=== PATIENT | female | born 1955 | race Caucasian/White ===

== ENCOUNTER 2019-10-14 07:49 | Inpatient (IN) ==
--- NOTE | 2019-09-11 12:37 | PAT Medication Instructions ---
Medication Instructions Date of Service September 11, 2019 Home Medications Medication Instructions Recorded oxycodone-acetaminophen [Percocet] 1 - 2 tab PO Q6H PRN #30 tab 07/22/19 atorvastatin [Lipitor] 20 mg PO QAM montelukast 10 mg PO olmesartan [Benicar] 40 mg PO QAM oxycodone-acetaminophen [Percocet] 1 - 2 tab PO Q6H PRN albuterol sulfate [Proventil HFA] 2 puff INHALATION Q6H PRN inulin [Fiber Gummies] 1 g PO QAM multivitamin 1 cap PO QAM turmeric 400 mg PO QAM STOP taking 2 weeks before surgery (or as soon as possible if surgery is within 2 weeks) turmeric 400 mg PO QAM DO NOT take the morning of surgery montelukast 10 mg PO olmesartan [Benicar] 40 mg PO QAM inulin [Fiber Gummies] 1 g PO QAM multivitamin 1 cap PO QAM Take morning of surgery With a small sip of water, OTHERWISE NOTHING TO EAT OR DRINK AFTER MIDNIGHT: atorvastatin [Lipitor] 20 mg PO QAM oxycodone-acetaminophen [Percocet] 1 - 2 tab PO Q6H PRN (okay to take up to 4 hours prior to surgery if needed) albuterol sulfate [Proventil HFA] 2 puff INHALATION Q6H PRN (use if needed; please bring with you to hospital day of surgery if possible) Other Notes If you have any questions please call us at [phone] or [phone] or [phone] or [phone]
--- NOTE | 2019-09-11 12:39 | Anesthesiology Consultation ---
Date of Service September 11, 2019 Assessment & Plan (1) Encounter for pre-operative examination: - Awaiting review preop testing (labs, EKG, CXR). - Awaiting surgeon-ordered PCP preop evaluation scheduled 09/16. - S/P left wrist application of external fixator: 07/22/19: LMA#4 at [facility] Chart Review Chart Review: Patient seen in Pre Admission Testing Teaching & Discussion Pre-Anesthesia Teaching/Discussion Notes: Instructed NPO after midnight before surgery,except medications with 15 cc of water. Medication instructions provi ded according to the PAT guidelines. History Surgery Operation Date: 10/14/19 10:05 Proposed Procedures p Right Total Knee Arthroplasty - Damaso Alaniz DO Height/Weight Height: 5 ft 2 in Weight: 95.8 kg Allergies Allergy/AdvReac Type Severity Reaction Status Date / Time No Known Allergies Allergy Unverified 09/10/19 11:33 Medications Home Medications Medication Instructions Recorded Confirmed Last Taken atorvastatin [Lipitor] 20 mg PO QAM 07/21/19 09/10/19 07/21/19 07:00 montelukast 10 mg PO QAM 07/21/19 09/10/19 07/21/19 07:00 olmesartan [Benicar] 40 mg PO QAM 07/21/19 09/10/19 07/21/19 07:00 oxycodone-acetaminophen [Percocet] 1 - 2 tab PO Q6H PRN #30 tab 07/22/19 09/10/19 Unknown albuterol sulfate [Proventil HFA] 2 puff INHALATION Q6H PRN 09/10/19 09/10/19 Unknown inulin [Fiber Gummies] 1 g PO QAM 09/10/19 09/10/19 Unknown multivitamin 1 cap PO QAM 09/10/19 09/10/19 Unknown turmeric 400 mg PO QAM 09/10/19 09/10/19 Unknown Past Medical History Medical History Obesity Osteoarthritis Asthma stable Hypercholesteremia Hypertension Exercise / Class Metabolic Activity III < 4 Walking/Shop/Light housework Past Surgical History Surgical History History of open reduction and internal fixation (ORIF) procedure left wrist Hx of arthroscopic knee surgery left knee H/O section [place] teeth extracted Past Anesthesia History No Hx of Anesthesia Complications and No Family Hx of Anesthesia Complications History of PONV No Hx of PONV and No Hx of Motion Sickness Social History Smoking Status: Never smoker Do You Dip or Chew Tobacco: No Hx Alcohol Use: Yes alcohol intake frequency: a few times a month Hx Substance Use: No substance use type: does not use Review of Systems Patient denies chest pain, shortness of breath, reflux, cough, wheezing, palpitations. Physical Exam Vital Signs VITALS BP 135/78 P 79 TEMP 97.6 SP02 96%RA RESP 18 PHYSICAL Full neck and c-spine range of motion. Full TMJ range of motion. TMD 4 finger breaths Mallampati Score 2 Dentition: intact, cap/crown on molar Lungs: clear throughout to auscultation Cardiac: regular rate and rhythm, no murmurs noted Spine: normal Carotid arteries: negative bruit Extremities: no edema Testing Electrocardiogram Date: 07/21/19 NSR at 73bpm. Chest X-Ray Date: 07/21/19 Mild basilar atelectasis. No evidence of pneumothorax. No evidence of failure. No evidence of lobar consolidation.
[2019-09-11 14:28] LABS: Basophils # (auto) 0.03 K/uL (0-0.2); Basophils % (auto) 0.4 %; Eosinophils # (auto) 0.31 K/uL (0-0.5); Eosinophils % (auto) 4.5 %; Hematocrit (blood only) 37.5 % (37-47); Hemoglobin 12.6 g/dL (12.0-16.0); Immature Granulocytes # (auto) 0.01 K/uL (0.00-0.02); Immature Granulocytes % (auto) 0.1 %; Lymphocytes # (auto) 2.19 K/uL (1.2-3.4); Lymphocytes % (auto) 31.9 %; Mean Corpuscular Hemoglobin 32.1 pg (25-34); Mean Corpuscular Hgb Conc 33.6 g/dL (32-36); Mean Corpuscular Volume 95.4 fL (80-100); Mean Platelet Volume 9.8 fL (7.4-10.4); Monocytes # (auto) 0.36 K/uL (0.11-0.59); Monocytes % (auto) 5.2 %; Neutrophils # (auto) 3.97 K/uL (1.4-6.5); Neutrophils % (auto) 57.9 %; Platelet Count 263 K/uL (130-400); RDW Coefficient of Variation 12.3 % (11.5-14.5); RDW Standard Deviation 42.8 fL (36.4-46.3); Red Blood Count 3.93 M/uL (4.2-5.4); White Blood Count 6.87 K/uL (4.8-10.8)
[2019-09-11 14:35] LABS: Albumin Level 3.4 gm/dl (3.4-5.0); BUN Creatinine Ratio 21.8 (10-20); Calcium 9.2 mg/dl (8.5-10.1); Creatinine Clr Calc Pharmacy 79.7 ml/min; Est GFR (African American) 93.8; Est GFR (Non-African American) 80.9; Potassium 4.3 mmol/L (3.5-5.1)
[2019-09-11 14:36] LABS: Estimated Average Glucose 123 mg/dl; Hemoglobin A1C 5.9 % (4.5-5.6)
[2019-09-11 14:41] LABS: Partial Thromboplastin Time 28.2 Seconds (21.0-31.0); Prothrombin Time 10.3 Seconds (9.0-12.0)
[2019-09-11 14:48] LABS: Appearance Urine Clear (Clear); Bilirubin Urine Negative (Negative); Blood Urine Negative (Negative); Color Urine Yellow; Glucose Urine UA Negative (Negative); Ketones Urine Negative (Negative); Leukocyte Esterase Urine Negative (Negative); Nitrite Urine Negative (Negative); Protein Urine Negative (Negative); Specific Gravity Urine 1.014 (1.000-1.030); Urobilinogen Urine Negative (Negative); pH Urine 5.5 (4.5-7.5)
--- NOTE | 2019-09-19 14:31 | History & Physical Report ---
Date of Service September 19, 2019 date of surgery: 10-14-19 Assessment & Plan (1) Osteoarthritis of right knee: Further care discussed with patient and at this point in time has failed conservative measures and would like to proceed with a Right total knee replacement. Plan on discharge will be home with home health physical therapy. DVT prophalaxis with TEDs, SCDs and will also place on aspirin 81 mg p.o. b.i.d. for a month postop. Patient will have follow up appointment in our office two weeks post op for staple/suture removal and re-evaluation. Patient otherwise has no other questions or concerns. History of Present Illness Chief Complaint: Right knee pain Primary Care Provider: Rochelle Montgomery DO Norma is a 64 year old female who complains of Right knee pain, presents for pre-op evaluation prior to a Right total knee replacement by dr Alaniz at [facility]. She complains of pain, crepitus, decreased range of motion, instability and stiffness in the Right knee. She states that the symptoms have been chronic and non-traumatic. She states that the symptoms occur constantly with intermittent worsening. Currently the patient states that the symptoms are moderate-severe. The pain is described as aching, sharp and throbbing. The symptoms occur continuously. The symptoms are aggravated by ascending stairs, daily activities, first steps while awake walking. Prior NSAIDs include Aleve, Norma has been treated with previous Durolane (Visco) injections in the past without much relief. her radius fracture has healed well and is ready to proceed with Right TKA. Allergies Allergy/AdvReac Type Severity Reaction Status Date / Time No Known Allergies Allergy Unverified 09/10/19 11:33 Home Medications Home Medications Medication Instructions Recorded Confirmed Type atorvastatin [Lipitor] 20 mg PO QAM 07/21/19 09/10/19 History montelukast 10 mg PO QAM 07/21/19 09/10/19 History olmesartan [Benicar] 40 mg PO QAM 07/21/19 09/10/19 History oxycodone-acetaminophen [Percocet] 1 - 2 tab PO Q6H PRN #30 tab 07/22/19 09/10/19 Rx albuterol sulfate [Proventil HFA] 2 puff INHALATION Q6H PRN 09/10/19 09/10/19 History inulin [Fiber Gummies] 1 g PO QAM 09/10/19 09/10/19 History multivitamin 1 cap PO QAM 09/10/19 09/10/19 History turmeric 400 mg PO QAM 09/10/19 09/10/19 History Past Med/Surg History Medical History Asthma stable Hypercholesteremia Hypertension Obesity Osteoarthritis Surgical History H/O section History of open reduction and internal fixation (ORIF) procedure left wrist Hx of arthroscopic knee surgery left knee [place] teeth extracted Family History (Updated 09/19/19 @ 15:34 by Rishabh Ortega PA-C) Unknown No family history of adverse response to anesthesia Social History Preferred Language: Romansh Communication Ability: Effective [employer] Required: No Beliefs That Will Affect Care: None Current Living Situation: Spouse Other Information That Helps Us Care for You: No Feels Safe at Home: Yes Safety Concerns: Feels Safe At This Time Smoking Status: Never smoker Do You Dip or Chew Tobacco: No ; Second Hand Exposure: No ; Tobacco Cessation Education Requested by Patient: No Hx Alcohol Use: Yes Hx Substance Use: No Review of Systems Review of Systems: All systems reviewed & are unremarkable except as noted in HPI & below Constitutional: no fever, no chills and no sweats Respiratory: no cough and no dyspnea Cardiovascular: no chest pain, no dyspnea and no orthopnea Gastrointestinal: no abdominal pain, no nausea and no vomiting Musculoskeletal: as per Subjective / HPI Physical Exam Physical Exam: Ht: 5ft 2in Wt: 95.8kg BP: 124/78 Pulse: 85 Constitutional: WD/WN, vitals as above no acute distress Respiratory: normal respiratory effort, lungs clear to auscultation no respiratory distress, no labored breathing and does not use accessory muscles Cardiovascular: RRR, no murmur, no edema Gastrointestinal (Abdomen): normal bowel sounds, soft, nontender, no hepatosplenomegaly Musculoskeletal: Knee: + knee abnormal to inspection (right knee- ), + effusion (+1 effusion), + surgical incision (well healed portals), + limited ROM of knee (ROM 0/3/115), + knee ROM with crepitation, + joint line tenderness (medial joint line) and + Delmi's sign positive; no deformity, no skin erythema, no ecchymosis, no valgus laxity, no varus laxity, anterior drawer test negative, Konrad's sign negative and pivot shift test negative Results & Data Laboratory Results Laboratory Results WBC 6.87 K/uL (4.8-10.8) 09/11/19 12:54 RBC 3.93 M/uL (4.2-5.4) L 09/11/19 12:54 Hgb 12.6 g/dL (12.0-16.0) 09/11/19 12:54 Hct 37.5 % (37-47) 09/11/19 12:54 MCV 95.4 fL (80-100) 09/11/19 12:54 MCH 32.1 pg (25-34) 09/11/19 12:54 MCHC 33.6 g/dL (32-36) 09/11/19 12:54 RDW Std Deviation 42.8 fL (36.4-46.3) 09/11/19 12:54 RDW Coeff of Una 12.3 % (11.5-14.5) 09/11/19 12:54 Plt Count 263 K/uL (130-400) 09/11/19 12:54 MPV 9.8 fL (7.4-10.4) 09/11/19 12:54 Immature Gran % (Auto) 0.1 % 09/11/19 12:54 Neut % (Auto) 57.9 % 09/11/19 12:54 Lymph % (Auto) 31.9 % 09/11/19 12:54 [place] % (Auto) 5.2 % 09/11/19 12:54 Eos % (Auto) 4.5 % 09/11/19 12:54 Baso % (Auto) 0.4 % 09/11/19 12:54 Immature Gran # (Auto) 0.01 K/uL (0.00-0.02) 09/11/19 12:54 Neut # (Auto) 3.97 K/uL (1.4-6.5) 09/11/19 12:54 Lymph # (Auto) 2.19 K/uL (1.2-3.4) 09/11/19 12:54 [place] # (Auto) 0.36 K/uL (0.11-0.59) 09/11/19 12:54 Eos # (Auto) 0.31 K/uL (0-0.5) 09/11/19 12:54 Baso # (Auto) 0.03 K/uL (0-0.2) 09/11/19 12:54 PT 10.3 Seconds (9.0-12.0) 09/11/19 12:54 INR 1.0 (0.9-1.1) 09/11/19 12:54 APTT 28.2 Seconds (21.0-31.0) 09/11/19 12:54 PTT Ratio 1.0 09/11/19 12:54 Sodium 141 mmol/L (136-145) 09/11/19 12:54 Potassium 4.3 mmol/L (3.5-5.1) 09/11/19 12:54 Chloride 107 mmol/L (98-107) 09/11/19 12:54 Carbon Dioxide 30 mmol/L (21-32) 09/11/19 12:54 Anion Gap 4.0 (3-11) 09/11/19 12:54 BUN 17 mg/dl (7-18) 09/11/19 12:54 Creatinine 0.78 mg/dl (0.6-1.2) 09/11/19 12:54 Est Cr Clr Drug Dosing 79.7 ml/min 09/11/19 12:54 Est GFR ( Amer) 93.8 09/11/19 12:54 Est GFR (Non-Af Amer) 80.9 09/11/19 12:54 BUN/Creatinine Ratio 21.8 (10-20) H 09/11/19 12:54 Glucose 107 mg/dl (70-99) H 09/11/19 12:54 Estimat Average Glucose 123 mg/dl 09/11/19 12:54 Hemoglobin A1c 5.9 % (4.5-5.6) H 09/11/19 12:54 Calcium 9.2 mg/dl (8.5-10.1) 09/11/19 12:54 Albumin 3.4 gm/dl (3.4-5.0) 09/11/19 12:54 Urine Color Yellow 09/11/19 Unknown Urine Appearance Clear (Clear) 09/11/19 Unknown Urine pH 5.5 (4.5-7.5) 09/11/19 Unknown Ur Specific [place] 1.014 (1.000-1.030) 09/11/19 Unknown Urine Protein Negative (Negative) 09/11/19 Unknown Urine Glucose (UA) Negative (Negative) 09/11/19 Unknown Urine Ketones Negative (Negative) 09/11/19 Unknown Urine Blood Negative (Negative) 09/11/19 Unknown Urine Nitrite Negative (Negative) 09/11/19 Unknown Urine Bilirubin Negative (Negative) 09/11/19 Unknown Urine Urobilinogen Negative (Negative) 09/11/19 Unknown Ur Leukocyte Esterase Negative (Negative) 09/11/19 Unknown Blood Type O Positive 09/11/19 12:54 Antibody Screen NEGATIVE 09/11/19 12:54 Diagnostic Findings right knee xray showing complete loss joint space medial compartment with overall varus alignment, there is also narrowing of the lateral compartment and patellofemoral joint. there is osteophyte formation, subchondral sclerosis noted, no loose bodies, no acute bony pathology. overall impression tricompartmental degenerative changes to the right knee.
[~2019-10-14 07:49] MED LIST: ACETAMINOPHEN 500 MG TAB PO SCH; BUPIVACAINE 0.5 % 5 MG/1 ML PF 10ML VIAL ONE; CEFAZOLIN 2000MG 2,000 MG/15 ML SYR IV SCH; CeleBREX 200 MG CAP PO SCH; FAMOTIDINE 20 MG TAB PO SCH; GABAPENTIN 600 MG DOSE PO SCH; LR 500ML BOLUS, THEN 15ML/HR IV SCH; METOCLOPRAMIDE HCL 10 MG TABLET PO SCH; ROPIVACAINE 0.5% HCL/PF 150 MG, BUPIVACAINE 0.5% MPF 30 ML, EPINEPHrine 30MG/30ML (OR U... INFIL SCH; TRANEXAMIC ACID 1,000 MG **IV Intra-op IV SCH; TRANEXAMIC ACID 1,000 MG **IV Pre-op IV SCH; dexAMETHasone 4 MG TAB PO SCH
[2019-10-14] MEDS ORDERED: LIDOCAINE HCL 2% 2 ML VIAL/AMP(20MG/ML) INFIL ONE (07:51)
[2019-10-14] MEDS ORDERED: PROPOFOL IV EMULSION 10 MG/ML 20 ML VIAL IV ONE ×2 (07:51→10:49)
[2019-10-14] MEDS ORDERED: MIDAZOLAM HCL 1 MG/ML 2ML VIAL ONE (07:51)
[2019-10-14] MEDS ORDERED: fentaNYL citrate 100 MCG/2 ML VIAL ONE (07:51)
--- NOTE | 2019-10-14 08:47 | History & Physical Bridge Note ---
Date of Service October 14, 2019 History & Physical Bridge Note I have examined the patient, reviewed the History & Physical and in the interval since the performance of the History & Physical I have noted the following changes of clinical significance: no changes noted
[2019-10-14] MEDS ORDERED: BACITRACIN INJ 50,000 UNIT VIAL ONE (09:20)
[2019-10-14] MEDS ORDERED: ORTHO JOINT ANESTHETIC ONE (09:20)
[2019-10-14] MEDS ORDERED: ATROPINE SULFATE 0.1 MG/ML 10ML SYR IV PRN (09:29)
[2019-10-14] MEDS ORDERED: ONDANSETRON INJ 2 MG/ML 2 ML VIAL IV PRN ×2 (09:29→12:48)
[2019-10-14] MEDS ORDERED: fentaNYL citrate 100 MCG/2 ML VIAL IV PRN (09:29)
[2019-10-14] MEDS ORDERED: ePHEDrine sulfate 50 MG/ML AMP IV PRN (09:29)
--- NOTE | 2019-10-14 10:56 | Operative Report ---
Post Operative Report Pre & Post Diagnosis Operation Date: 10/14/19 09:55 Pre-Op Diagnosis: Unilateral Primary Osteoarthritis, Right Knee Post-Op Diagnosis: Unilateral Primary Osteoarthritis, Right Knee I identified the patient and participated in the time-out.: Yes Procedure Operation Date: 10/14/19 09:55 Actual Procedures p Right Total Knee Arthroplasty(Right) utilizing [employer] journey 2 patient matched total knee arthroplasties 5 femur 4 tibia 13 polyethylene 29 oval patella- Damaso Alaniz DO Surgeon Damaso Alaniz DO Director Of Fundraising OSM[place] Estimated Blood Loss 5 Findings Consistent with Post-Op Diagnosis Patient presents a 64-year-old white female with complaints of severe end-stage DJD about her knee she is no evidence of varus alignment subchondral sclerosis marginal osteophytes subchondral cystic changes [id number] with a moderate to large effusion no response to conservative management Specimens Bone and cartilage Drains Medium bore Hemovac Complications none Disposition Accompanied Patient To Recovery: No Disposition: Recovery Room Indications Patient presents as a 64-year-old white female complains of ongoing pain about her right knee no response to conservative management with physical therapy anti-inflammatories relative rest activity modification corticosteroid injections Visco supplementation bracing the above intraoperative findings at the time of surgery. Description of Procedure After proper identification of the patientAfter proper prepping and draping of the Right lower extremity anterior midline incision was made over the region of the extensor extensor mechanism after meticulous hemostasis was obtained and maintained in subcutaneous tissues a medial parapatellar incision was made The patella was subluxed lateralward the medial lateral gutter were cleaned from any hypertrophic synovitis and scar tissue of the distal femoral block was placed and the distal femoral osteotomy cut was made subsequently the chamfers anterior and posterior osteotomy cuts were made utilizing the 4-in-1 block the tibia was subsequently subluxed anteriorward medial and ateral meniscal remnants were excised in their entirety remnants of the anterior and posterior cruciate ligaments were excised in their entirety excellent exposure of the proximal ti percy was obtained the tibial osteotomy guide was placed on the proximal tibial osteotomy cut was made once again the knee was irrigated with copious amounts of sterile saline solution the patella was subsequently everted lateralward thickened scar tissue around the patella was removed the patella was subsequently cut utilizing a freehand technique and was drilled prepared for final preparation and placement of patella socially flexion-extension gaps were checked and the equal and symmetric trials were placed to the appropriate femoral and tibial trials with poly-spacer being placed for equal flexion and extension gaps and full range of motion including extension to 0 and flexion to 140 the trial components after having been taken to recovery range of motion was subsequently removed meticulous hemostasis was obtained and maintained subsequently a knee block injection of joint cocktail including ropivacaine 0.5% 150 mg. Bupivacaine 0.5% epinephrine 1-200,030 mL's toradol 30 mg dexamethasone 4 mg ketamine 10 mg clonidine 100 micrograms normal saline solution 30 mg was infiltrated into the soft tissues of the posterior knee medial lateral gutters and periosteal synovium special attention was paid to protect neurovascular structures at all times subsequently trial components having been removed the knee was irrigated with sterile saline solution. debris was removed the proximal tibia was subsequently prepared and was made ready for the placement of the tibial component tibial component was also cemented and tamped into position the femoral component was subsequently placed and cemented in the position the patellar component was subsequently cemented in position because hemostasis once again obtained and maintained wound having been thoroughly irrigated with debridement and debridement lavage was performed as well as a medial parapatellar incision closed with #1 Vicryl in interrupted fashion subcutaneous was closed with #2 Vicryl skin was closed with skin clips. PA-C was necessary for prepping and drapping as well as wound closure of deep fascia Sub cutaneous tissue and skin and was necessary for the case. A sterile compressive dressing was placed patient was taken to recovery in stable condition of report dictated by Corbin I attest to the content of the Intraoperative Record and any orders documented therein. Any exceptions are noted below. I attest to the content of the Intraoperative Record and any orders documented therein. Any exceptions are noted below.
--- NOTE | 2019-10-14 12:18 | Anesthesiology Progress Note ---
Date of Service October 14, 2019 Anesthesia Post Procedure Vital Signs Vital Signs: Temp Pulse Pulse Resp BP BP Pulse Ox 10/14/19 12:15 68 16 120/77 99 10/14/19 12:05 98.2 F 76 16 120/70 97 10/14/19 11:55 75 16 104/65 100 10/14/19 11:45 79 16 113/58 L 100 10/14/19 11:37 98.6 F 88 16 103/55 L 97 10/14/19 08:21 98.1 F 75 18 144/81 H 98 Pain Intensity Right Knee: Pain Intensity: 3 Transfer of Care Handoff Completed per policy Notes Mental Status: alert / awake / arousable and participated in evaluation Patient Amnestic to Procedure: Yes Nausea / Vomiting: adequately controlled Pain: adequately controlled Airway Patency, RR, SpO2: stable & adequate BP & HR: stable & adequate Hydration State: stable & adequate Neuraxial Anesthesia: was administered and sensory block is resolving Anesthetic Complications: no major complications apparent and Pt Satisfied with anesthetic care
--- NOTE | 2019-10-14 12:22 | XRay Report ---
RIGHT KNEE 2 VIEWS History: Right total knee arthroplasty. Degenerative arthritis. Postop. FINDINGS: The patient is status post a right total knee arthroplasty. The hardware is intact. No frac ture or dislocation. Surgical drains are in place. IMPRESSION: Right total knee arthroplasty. No evidence for hardware complication. Electronically signed by: Doyle Barros M.D. 10/14/2019 12:21 PM
[2019-10-14] MEDS ORDERED: ALBUTEROL HFA 8 GM INHALER INH PRN (12:48)
[2019-10-14] MEDS ORDERED: HYDROmorphone INJ 1 MG/ML SYRINGE IV PRN (12:48)
[2019-10-14] MEDS ORDERED: bisacodyL 10 MG SUPP PR PRN (12:48)
[2019-10-14] MEDS ORDERED: METOCLOPRAMIDE HCL INJ 5 MG/ML 2 ML VIAL IV PRN (12:48)
[2019-10-14] MEDS ORDERED: MAGNESIUM HYDROXIDE SUSP 30 ML UDC PO PRN (12:48)
[2019-10-14] MEDS ORDERED: OXYCODONE HCL IR 5 MG TAB (IMMEDIATE RELEASE) PO PRN (12:48)
[2019-10-14] MEDS ORDERED: NALOXONE HCL 0.4 MG/1 ML VIAL/CARP IV PRN (12:48)
[2019-10-14] MEDS ORDERED: SODIUM CHLORIDE 0.9% 1000ML 1,000 ML IV SCH (12:48)
[2019-10-14] MEDS: KETOROLAC 30 MG/ML VIAL IV SCH ×2 (14:04→20:47)
[2019-10-14] MEDS: ACETAMINOPHEN 500 MG TAB PO SCH ×2 (14:24→21:03)
[2019-10-14] MEDS: CEFAZOLIN 2000MG 2,000 MG/15 ML SYR IV SCH (17:35)
[2019-10-14] MEDS: DOCUSATE SODIUM 100 MG CAP PO SCH (20:47)
[2019-10-14] MEDS: ASPIRIN 81 MG ECTAB PO SCH (20:47)
[2019-10-14] MEDS ORDERED: SENNA 8.6 MG TAB PO SCH (21:00)
[2019-10-15] MEDS: KETOROLAC 30 MG/ML VIAL IV SCH ×2 (02:23→08:52)
[2019-10-15] MEDS: CEFAZOLIN 2000MG 2,000 MG/15 ML SYR IV SCH (02:23)
[2019-10-15 05:25] LABS: Hematocrit (blood only) 29.7 % (37-47); Hemoglobin 10.3 g/dL (12.0-16.0); Mean Corpuscular Hemoglobin 32.1 pg (25-34); Mean Corpuscular Hgb Conc 34.7 g/dL (32-36); Mean Corpuscular Volume 92.5 fL (80-100); Mean Platelet Volume 9.8 fL (7.4-10.4); Platelet Count 229 K/uL (130-400); RDW Coefficient of Variation 12.6 % (11.5-14.5); Red Blood Count 3.21 M/uL (4.2-5.4); White Blood Count 12.13 K/uL (4.8-10.8)
[2019-10-15] MEDS: ACETAMINOPHEN 500 MG TAB PO SCH ×2 (05:29→13:18)
[2019-10-15 05:46] LABS: BUN Creatinine Ratio 20.9 (10-20); Calcium 8.1 mg/dl (8.5-10.1); Creatinine Clr Calc Pharmacy 72.3 ml/min; Est GFR (African American) 84.5; Est GFR (Non-African American) 72.9; Potassium 4.1 mmol/L (3.5-5.1)
--- NOTE | 2019-10-15 07:27 | Orthopedic Progress Note ---
Date of Service October 15, 2019 Assessment & Plan (1) History of total right knee replacement: POD #1 s/p Right TKA pt/ot dvt proph with CAMILA/SCD/ASA plan for d/c home with HHPT after PT today. will d/c hemovac if less than 100, if not will leave in until tomorrow and have home nursing d/c tomorrow. Subjective POD #1 s/p Right TKA Review of Systems Constitutional: no fever, no chills and no sweats Respiratory: no cough and no dyspnea Cardiovascular: no chest pain and no dyspnea Gastrointestinal: no abdominal pain, no nausea and no vomiting Physical Exam Physical Exam: Vital Signs Temp 36.7 C 10/15/19 03:20 Pulse 67 10/15/19 03:20 Resp 16 10/15/19 03:20 BP 94/55 L 10/15/19 03:20 Pulse Ox 97 10/15/19 03:20 Intake & Output 10/14/19 10/15/19 10/15/19 18:59 06:59 18:59 Intake Total 1720.0 / 2700.0 980 / 2700.0 Output Total 962 / 2412 1450 / 2412 Balance 758.0 / 288.0 -470 / 288.0 Weight 93.848 kg Intake: IV 900.0 / 1580.0 680 / 1580.0 Lr 1,000 ml @ 15 mls/hr IV . 700.0 / 700.0 Q24H [facility] Rx#:[id number] Nss 1000ML 1,0 00 ml @ 100 mls/ 680 / 680 hr IV .Q10H [facility] Rx#:[id number] TRANEXAMIC ACI D / 0.7% NACL 1, 200 / 200 000 mg In 100 ml @ 600 mls/hr IV 0630 [facility] Rx #:[id number] IV Perioperative 700 / 700 Oral 120 / 420 300 / 420 Output: Urine 800 / 2000 1200 / 2000 Estimated Blood Loss 5 / 5 Drain Output 157 / 407 250 / 407 Right Knee Hem ovac 157 / 407 250 / 407 Constitutional: WD/WN, vitals as above no acute distress Musculoskeletal: Right Leg: NVDI, calf SNT, negative damari sign. DP palpable, able to wiggle toes/ankle movement without difficulty. dressing clean dry and intact. Results & Data Vital Signs (Past 12 Hours) Vital Signs Temp Pulse Resp BP Pulse Ox 10/15/19 03:20 36.7 C 67 16 94/55 L 97 10/14/19 22:49 36.5 C 80 16 127/80 97 Laboratory Results Laboratory Results WBC 12.13 K/uL (4.8-10.8) H 10/15/19 05:05 RBC 3.21 M/uL (4.2-5.4) L 10/15/19 05:05 Hgb 10.3 g/dL (12.0-16.0) L 10/15/19 05:05 Hct 29.7 % (37-47) L 10/15/19 05:05 MCV 92.5 fL (80-100) 10/15/19 05:05 MCH 32.1 pg (25-34) 10/15/19 05:05 MCHC 34.7 g/dL (32-36) 10/15/19 05:05 RDW Std Deviation 43.0 fL (36.4-46.3) 10/15/19 05:05 RDW Coeff of Una 12.6 % (11.5-14.5) 10/15/19 05:05 Plt Count 229 K/uL (130-400) 10/15/19 05:05 MPV 9.8 fL (7.4-10.4) 10/15/19 05:05 Immature Gran % (Auto) 0.1 % 09/11/19 12:54 Neut % (Auto) 57.9 % 09/11/19 12:54 Lymph % (Auto) 31.9 % 09/11/19 12:54 [place] % (Auto) 5.2 % 09/11/19 12:54 Eos % (Auto) 4.5 % 09/11/19 12:54 Baso % (Auto) 0.4 % 09/11/19 12:54 Immature Gran # (Auto) 0.01 K/uL (0.00-0.02) 09/11/19 12:54 Neut # (Auto) 3.97 K/uL (1.4-6.5) 09/11/19 12:54 Lymph # (Auto) 2.19 K/uL (1.2-3.4) 09/11/19 12:54 [place] # (Auto) 0.36 K/uL (0.11-0.59) 09/11/19 12:54 Eos # (Auto) 0.31 K/uL (0-0.5) 09/11/19 12:54 Baso # (Auto) 0.03 K/uL (0-0.2) 09/11/19 12:54 PT 10.3 Seconds (9.0-12.0) 09/11/19 12:54 INR 1.0 (0.9-1.1) 09/11/19 12:54 APTT 28.2 Seconds (21.0-31.0) 09/11/19 12:54 PTT Ratio 1.0 09/11/19 12:54 Sodium 140 mmol/L (136-145) 10/15/19 05:05 Potassium 4.1 mmol/L (3.5-5.1) 10/15/19 05:05 Chloride 109 mmol/L (98-107) H 10/15/19 05:05 Carbon Dioxide 26 mmol/L (21-32) 10/15/19 05:05 Anion Gap 5.0 (3-11) 10/15/19 05:05 BUN 18 mg/dl (7-18) 10/15/19 05:05 Creatinine 0.85 mg/dl (0.6-1.2) 10/15/19 05:05 Est Cr Clr Drug Dosing 72.3 ml/min 10/15/19 05:05 Est GFR ( Amer) 84.5 10/15/19 05:05 Est GFR (Non-Af Amer) 72.9 10/15/19 05:05 BUN/Creatinine Ratio 20.9 (10-20) H 10/15/19 05:05 Glucose 138 mg/dl (70-99) H 10/15/19 05:05 Estimat Average Glucose 123 mg/dl 09/11/19 12:54 Hemoglobin A1c 5.9 % (4.5-5.6) H 09/11/19 12:54 Calcium 8.1 mg/dl (8.5-10.1) L 10/15/19 05:05 Albumin 3.4 gm/dl (3.4-5.0) 09/11/19 12:54 Urine Color Yellow 09/11/19 Unknown Urine Appearance Clear (Clear) 09/11/19 Unknown Urine pH 5.5 (4.5-7.5) 09/11/19 Unknown Ur Specific [place] 1.014 (1.000-1.030) 09/11/19 Unknown Urine Protein Negative (Negative) 09/11/19 Unknown Urine Glucose (UA) Negative (Negative) 09/11/19 Unknown Urine Ketones Negative (Negative) 09/11/19 Unknown Urine Blood Negative (Negative) 09/11/19 Unknown Urine Nitrite Negative (Negative) 09/11/19 Unknown Urine Bilirubin Negative (Negative) 09/11/19 Unknown Urine Urobilinogen Negative (Negative) 09/11/19 Unknown Ur Leukocyte Esterase Negative (Negative) 09/11/19 Unknown Blood Type O Positive 09/11/19 12:54 Antibody Screen NEGATIVE 09/11/19 12:54 Diagnostic Findings RIGHT KNEE 2 VIEWS History: Right total knee arthroplasty. Degenerative arthritis. Postop. FINDINGS: The patient is status post a right total knee arthroplasty. The hardware is intact. No fracture or dislocation. Surgical drains are in place. IMPRESSION: Right total knee arthroplasty. No evidence for hardware complication.
[2019-10-15] MEDS: ASPIRIN 81 MG ECTAB PO SCH (08:53)
[2019-10-15] MEDS: DOCUSATE SODIUM 100 MG CAP PO SCH (08:53)
[2019-10-15] MEDS ORDERED: MULTIVITAMIN TAB PO SCH (09:00)
[2019-10-15] MEDS ORDERED: OLMESARTAN MEDOXOMIL 40 MG TAB PO SCH (09:00)
[2019-10-15] MEDS ORDERED: MONTELUKAST SODIUM 10 MG TABLET PO SCH (09:00)
[2019-10-15] MEDS ORDERED: ATORVASTATIN 20 MG TAB PO SCH (09:00)
[2019-10-15] MEDS ORDERED: CeleBREX 200 MG CAP PO SCH (13:00)
--- NOTE | 2019-10-15 16:54 | Discharge Summary ---
Date of Service date of discharge: October 15, 2019 date of Admission: 10/14/19 Admission HPI Per Admitting Provider Norma is a 64 year old female who complains of Right knee pain, presents for pre-op evaluation prior to a Right total knee replacement by dr Alaniz at [facility]. She complains of pain, crepitus, decreased range of motion, instability and stiffness in the Right knee. She states that the symptoms have been chronic and non-traumatic. She states that the symptoms occur constantly with intermittent worsening. Currently the patient states that the symptoms are moderate-severe. The pain is described as aching, sharp and throbbing. The symptoms occur continuously. The symptoms are aggravated by ascending stairs, daily activities, first steps while awake walking. Prior NSAIDs include Aleve, Norma has been treated with previous Durolane (Visco) injections in the past without much relief. her radius fracture has healed well and is ready to proceed with Right TKA. Principal Diagnosis right knee osteoarthritis Discharge Exam Vital Signs Temp 37 C 10/15/19 11:40 Pulse 86 10/15/19 11:40 Resp 14 10/15/19 11:40 BP 128/72 10/15/19 11:40 Pulse Ox 99 10/15/19 11:40 Intake & Output 10/14/19 10/15/19 10/15/19 18:59 06:59 18:59 Intake Total 1720.0 / 2700.0 980 / 2700.0 1200 / 1200 Output Total 962 / 2412 1450 / 2412 60 / 60 Balance 758.0 / 288.0 -470 / 288.0 1140 / 1140 Weight 93.848 kg 93.848 kg Intake: IV 900.0 / 1580.0 680 / 1580.0 Lr 1,000 ml @ 15 mls/hr IV . 700.0 / 700.0 Q24H [facility] Rx#:[id number] Nss 1000ML 1,000 ml @ 100 mls/ 680 / 680 hr IV .Q10H [facility] Rx#:[id number] TRANEXAMIC ACID / 0.7% NACL 1, 200 / 200 000 mg In 100 ml @ 600 mls/hr IV 0630 [facility] Rx#:[id number] IV Perioperative 700 / 700 Oral 120 / 420 300 / 420 1200 / 1200 Output: Urine 800 / 2000 1200 / 2000 Estimated Blood Loss 5 / 5 Drain Output 157 / 407 250 / 407 60 / 60 Right Knee Hemovac 157 / 407 250 / 407 60 / 60 Other: # Unmeasured Voids 2 Constitutional WD/WN, vitals as above no acute distress Musculoskeletal right knee: NVDI, calf SNT, negative damari sign. DP palpable, able to wiggle toes/ankle movement without difficulty. dressing clean dry and intact. expected post-operative bruising noted. Discharge Data Allergies Allergy/AdvReac Type Severity Reaction Status Date / Time No Known Allergies Allergy Verified 10/14/19 08:22 Consultations 10/14/19 12:48 Consult Case Management - Discharge Planning Routine Procedures Performed Operation Date: 10/14/19 09:55 Actual Procedures p Right Total Knee Arthroplasty(Right) - Damaso Alaniz DO Ordered Studies 10/14/19 05:00 US - OR guided needle placemen Routine Hospital Course (1) History of total right knee replacement: POD #1 s/p Right TKA pt/ot dvt proph with CAMILA/SCD/ASA plan for d/c home with HHPT after PT today. will d/c hemovac if less than 100, if not will leave in until tomorrow and have home nursing d/c tomorrow. Total Time Total Time Spent Total Time Spent (In Minutes): 20 Total Time Includes: Examination of the Patient, Discharge Planning and Medicat ion Reconciliation Discharge Plan Discharge Items Patient Disposition: Home - Home Health Services Reason For Visit: Unilateral Primary Osteoarthritis, Right Knee Discharge Diagnosis: right total knee replacement Condition on Discharge: Good Activity: Per Instructions section Lifting: Wait until after follow-up appointment Exercise/Sports: Wait until after follow-up appointment Weightbearing: Full weightbearing and Right weightbearing Non-emergency contact: Surgeon Call non-emergency contact if: you have any medication questions, your temperature is above 101, your wound has increased redness, your wound has increased drainage and your wound pain has increased Follow-up/Referrals: Rochelle Montgomery DO [Primary Care Provider] - Diet: Regular Addtl Attending Provider Instructions: ACTIVITY RECOMMENDATIONS: SELF CARE INSTRUCTIONS AFTER TOTAL KNEE REPLACEMENT A. You may need to continue a physical therapy program after discharge from the hospital. There are several options available to you. Your doctor will assist you in selecting the best one for you. 1. An out-patient facility 2 to 3 times a week for therapy or home therapy. 2. Continue working on all exercises taught to you in the hospital. Your goals should be to increase bending of your knee to 90 degrees and beyond and to fully straighten your knee. B. You may progress at your own pace from walking with a walker or crutches to a cane; then to no assistive devices. C. Make walking a part of your daily routine. Be up as much as comfortable with rest periods throughout the day. Rest with leg elevation is very important. Use the ice wrap frequently for the first 3-4 weeks. D. There are no restrictions on activities. You may ride in a car, shop, participate in purification operator and all social activities. E. Wear the long elastic stockings (CAMILA hose) 20 hours a day for 2 weeks after surgery. They can be removed several times a day for laundering and for a bath. F. You may shower, no tub baths until cleared by your doctor. SPECIAL CARE INSTRUCTIONS: VERY IMPORTANT TO READ AND REVIEW A. There are a few signs you need to watch for after you are home. Call [facility] if you notice any of the followin. Increased severe knee pain. Some pain is expected especially when you exercise. 2. Increased swelling in your leg or knee; pain or swelling of the calf muscle in either lower leg. 3. Any fluid drainage from the incision. 4. Shortness of breath or chest pain. B. Please call [facility] at if you have any concerns or questions about your operation or recovery. The doctor or his nurse will return your call promptly. C. You must take antibiotics before dental work, bladder, bowel or other surgery. Your doctor will provide you with a permanent care to carry describing this precaution. IMPORTANT: * REMEMBER TO TAKE ASPIRIN, 81 MG, TWICE DAILY FOR 4 WEEKS UNLESS OTHERWISE DIRECTED. THIS IS YOUR BLOOD THINNER. * HIGH RISK PATIENTS MAY BE PRESCRIBED A STRONGER BLOOD THINNER. THIS WILL BE PROVIDED AT DISCHARGE. * CALL IF INCREASED PAIN, REDNESS, DRAINAGE OR FEVER GREATER THAT 101. * WEAR CAMILA HOSE 20 HOURS PER DAY FOR 2 WEEKS. * DERMABOND Prineo- This is a mesh tape dressing that is covered with glue. It should remain in place until the incision is properly healed, usually 10-14 days. This dressing is designed to naturally slough off. You may trim the excess mesh tape as it peels off. Incision may be briefly wet in a shower. Dr dubois immediately by blotting with a clean, dry towel. Do not bath or swim until instructed by your doctor. Do not scratch, rub, or pick at the dressing. Do not apply any topical ointments or lotions until dressing is completely removed and/or instructed by your doctor. There may be a small piece of suture material at one end of your incision. Do not pull or trim this. If it is bothersome or catching on clothing, you may cover it with a band-aid. IF INCISION IS LEAKING THROUGH DRESSING, CALL THE OFFICE . FOLLOW UP VISIT: If appointment is not already scheduled: Please call [facility] to make a follow-up appointment for 2 weeks after your surgery at . Pending Studies at Discharge: No Stand-Alone Forms: My [facility], Opioid Pain Management, Smoking Cessation Medications and DC Order Prescriptions: New celecoxib [Celebrex] 200 mg Capsule 200 mg PO BID Qty: 60 RF: 0 aspirin [Ecotrin Low Strength] 81 mg Tablet,Delayed Release (Dr/Ec) 81 mg PO BID 30 Days Qty: 60 RF: 0 docusate sodium 100 mg Capsule 100 mg PO BID 10 Days Qty: 20 RF: 0 cefadroxil 500 mg capsule 500 mg PO BID 10 Days Qty: 20 RF: 0 oxycodone-acetaminophen [Percocet] 5-325 mg Tablet 1 - 2 tab PO Q6H PRN (Reason: pain) Qty: 60 RF: 0 Continued atorvastatin [Lipitor] 20 mg Tablet 20 mg PO QAM RF: 0 montelukast 10 mg Tablet 10 mg PO QAM RF: 0 olmesartan [Benicar] 40 mg Tablet 40 mg PO QAM RF: 0 albuterol sulfate [Proventil HFA] 90 mcg/actuation Hfa Aerosol Inhaler 2 puff INHALATION Q6H PRN (Reason: sob) RF: 0 multivitamin Capsule 1 cap PO QAM RF: 0 Fiber Gummies 2 gram Tablet,Chewable 1 g PO QAM RF: 0 turmeric 400 mg Capsule 400 mg PO QAM RF: 0 Discharge Orders: Discharge Order (Routine); Ordered 10/15/19 Ordered By: Rishabh Guallpa/Other Patient Handouts: Surgery Prevent DVT After, ED Stockings Camila Admission Data Admit Date/Time: 10/14/19 11:42 Attending Provider: Damaso Alaniz Admit Provider: Damaso Alaniz Primary Care Provider: Rochelle Montgomery Other Interventions: Discharge Summary Assessment (RN) Last Done: 10/15/19 10:54 DC Date/Time DO NOT enter until pt leaves facility: 10/15/19 13:49
== END 2019-10-15 13:49 | disposition home health service (06) | DRG 470 ==
LOC: ASU 07:49 → 3E 11:42